=== PATIENT | male | born 2000 | race African-American/Black ===

== ENCOUNTER 2022-02-02 18:39 | Emergency (ER) | payer MEDICAID ==
[~2022-02-02] VITALS: Ht 188 cm; Wt 81.8 kg
[2022-02-02 18:49] VITALS: BP 102/53
[2022-02-02] MEDS ORDERED: AZITHROMYCIN 500 MG TABLET PO ONE (19:00)
[2022-02-02] MEDS ORDERED: LIDOCAINE/PF 1% 2 ML VIAL IM ONE (19:00)
[2022-02-02] MEDS ORDERED: CefTRIAXone SODIUM 1 GM/VIAL IM ONE (19:00)
== END 2022-02-02 19:30 | disposition home or self-care (01) ==
LOC: EMS 18:42
DX: Z20.2 Contact with and (suspected) exposure to infections with a predominantly sexual mode of transmission (principal); F12.90 Cannabis use, unspecified, uncomplicated; Z91.010 Allergy to peanuts
CPT/HCPCS: 96372; 99283; J0696; J3490; Q9967